=== PATIENT | female | born 1990 | race African-American/Black ===

== ENCOUNTER 2017-11-03 09:57 | Emergency (ER) | payer SELFPAY ==
[~2017-11-03] VITALS: Ht 162.6 cm; Wt 98.6 kg
[~2017-11-03 09:57] MED LIST: AMOXICILLIN 50500 MG PO; CEFTIN500 MG PO; CEPHALEXIN500 M1 PO; COLACE 100100 MG/CAP PO; DOXYCYCLINE 10100 MG PO; FLAGYL500 MG PO; FLINTSTONES1 CTB PO; GENTAMICIN EYE D5 ML OS; IMPLANON68 MG ID; NO HOME MEDICATIONS; NORCO 325 MG-51 TAB PO; PHENERGAN 25 TA25 MG PO; TUSS PO; ZOFRAN 4MG T4 MG/TAB PO; ZOFRAN4 M1 PO
[2017-11-03 10:02] VITALS: BP 131/76; TEMP 98.3
[2017-11-03 12:05] VITALS: PULSE 62
== END 2017-11-03 12:12 | disposition home or self-care (01) ==
LOC: COL.ER 09:57
DX: H61.23 Impacted cerumen, bilateral (principal); F17.210 Nicotine dependence, cigarettes, uncomplicated

== ENCOUNTER 2017-11-22 09:58 | Emergency (ER) | payer MEDICAID ==
[~2017-11-22] VITALS: Ht 165.1 cm; Wt 102.3 kg
[2017-11-22 10:01] VITALS: TEMP 99.2
[2017-11-22 10:24] LABS: COLLECTION METHOD CLEAN CATCH
[2017-11-22 10:31] LABS: MUCOUS Present /lpf; PH 7 (5-8); URINE APPEARANCE Hazy; URINE BACTERIA None Seen /hpf; URINE BILIRUBIN Negative (NEGATIVE); URINE BLOOD Negative (NEGATIVE); URINE COLOR Yellow; URINE GLUCOSE Negative (NEGATIVE); URINE KETONE Negative (NEGATIVE); URINE LEUKOCYTE ESTERASE Negative (NEGATIVE); URINE NITRATE Negative (NEGATIVE); URINE PROTEIN(semi-quant) Negative (NEGATIVE); URINE RBC 0-2 /hpf; URINE UROBILINOGEN Negative (NEGATIVE)
[2017-11-22 12:33] LABS: BASO % 0.3 % (0.0-2.0); EOS % 0.2 % (0-4.0); GRAN # 3.5 (1.4-6.5); GRAN % 60.9 % (42.2-75.2); LYMPH # 1.8 (1.2-3.4); LYMPH % 30.9 % (20.0-51.0); MEAN CELL VOLUME 87 fl (80.0-100.0); MEAN CORPUSCULAR HGB CONC 32 g/dl (33.0-37.0); MEAN PLATELET VOLUME 10.2 fl (7.4-10.4); MONO # 0.4 (0.1-0.6); MONO % 7.2 % (1.7-9.3); PLATELET COUNT 290 K/mm3 (130-400); RED BLOOD COUNT 4.23 M/mm3 (4.10-5.30); REDCELL DISTRIBUTION WIDTH-CV 14.7 % (11.5-14.5)
[2017-11-22 12:39] LABS: HEMATOCRIT 36.6 % (37.0-47.0); HEMOGLOBIN 11.8 g/dl (12.5-16.0); MEAN CORPUSCULAR HEMOGLOBIN 28 pg (27.0-31.0)
[2017-11-22 13:20] LABS: ALBUMIN 4.1 gm/dL (3.5-5.0); BILIRUBIN,TOTAL 0.3 mg/dL (0.0-1.0); CREATININE, serum 0.67 mg/dL (0.52-1.25); TOTAL PROTEIN 7.3 gm/dL (6.4-8.2)
[2017-11-22 13:48] VITALS: BP 119/69; PULSE 82
[2017-11-22] MEDS ORDERED: FLAGYL500 MG PO (14:10)
== END 2017-11-22 14:26 | disposition home or self-care (01) ==
LOC: COL.ER 09:58
PROVIDERS: Emergency Medicine; Nurse Practitioner
DX: O26.891 Other specified pregnancy related conditions, first trimester (principal); O23.591 Infection of other part of genital tract in pregnancy, first trimester; O99.331 Smoking (tobacco) complicating pregnancy, first trimester; R10.31 Right lower quadrant pain; B96.89 Other specified bacterial agents as the cause of diseases classified elsewhere; F17.210 Nicotine dependence, cigarettes, uncomplicated; Z98.890 Other specified postprocedural states; Z3A.01 Less than 8 weeks gestation of pregnancy
CPT/HCPCS: J2270; J2550; J7030

== ENCOUNTER 2018-05-22 22:44 | Outpatient (CLI) | payer MEDICAID ==
[~2018-05-22] VITALS: Ht 165.1 cm; Wt 110.0 kg
[2018-05-22 23:30] VITALS: BP 135/69; PULSE 107; TEMP 98.8
[2018-05-23] VITALS: BP 135/69; PULSE 107; TEMP 98.8
[2018-05-23 01:02] LABS: HEMOGLOBIN 10.5 g/dl (12.5-16.0); MEAN CELL VOLUME 90 fl (80.0-100.0); MEAN CORPUSCULAR HEMOGLOBIN 30 pg (27.0-31.0); MEAN CORPUSCULAR HGB CONC 33 g/dl (33.0-37.0); MEAN PLATELET VOLUME 10.4 fl (7.4-10.4); PLATELET COUNT 250 K/mm3 (130-400); RED BLOOD COUNT 3.54 M/mm3 (4.10-5.30); REDCELL DISTRIBUTION WIDTH-CV 14.8 % (11.5-14.5)
[2018-05-23 01:09] LABS: HEMATOCRIT 31.9 % (37.0-47.0)
[2018-05-23 01:13] LABS: ALBUMIN 3.9 gm/dL (3.5-5.0); BILIRUBIN,TOTAL 0.3 mg/dL (0.0-1.0); CREATININE, serum 0.45 mg/dL (0.52-1.25); POTASSIUM 3.6 mmol/L (3.4-5.0); TOTAL PROTEIN 7.6 gm/dL (6.4-8.2)
[2018-05-23] MEDS ORDERED: ZOFRAN 4MG T4 MG/TAB PO (01:24)
[2018-05-23 02:35] LABS: BAND 12 % (0-10); HYPOCHROMIA 1+; LYMPHOCYTE 13 % (20.0-51.0); NEUTROPHILS 67 % (42.0-75.2); PLATELET ESTIMATE NORMAL (NORMAL)
[2018-05-23 02:36] LABS: ANISOCYTOSIS 1+; POLYCHROMASIA 1+
[2018-05-23 02:37] LABS: TEAR DROP CELLS 1+
== END 2018-05-23 01:55 | disposition home or self-care (01) ==
LOC: LDRO 22:44
PROVIDERS: Obstetrics & Gynecology
DX: O99.89 Other specified diseases and conditions complicating pregnancy, childbirth and the puerperium (principal); R10.9 Unspecified abdominal pain; Z3A.32 32 weeks gestation of pregnancy
CPT/HCPCS: J2405; J2550; J7120

== ENCOUNTER 2018-06-30 11:39 | Outpatient (CLI) | payer MEDICAID ==
[~2018-06-30] VITALS: Ht 165.1 cm; Wt 112.3 kg
[2018-06-30 12:03] VITALS: BP 112/67; PULSE 109; TEMP 98.2
== END 2018-06-30 12:55 | disposition home or self-care (01) ==
LOC: LDRO 11:39
DX: Z34.93 Encounter for supervision of normal pregnancy, unspecified, third trimester (principal); Z3A.37 37 weeks gestation of pregnancy

== ENCOUNTER 2018-07-25 17:53 | Emergency (ER) | payer MEDICAID ==
[~2018-07-25] VITALS: Wt 95.5 kg
[~2018-07-25 17:53] MED LIST changes: +IBU800 M1 PO; +PERCOCET 325 MG1 TA2 PO
[2018-07-25 18:03] VITALS: BP 136/93; TEMP 99
[2018-07-25] MEDS ORDERED: CEPHALEXIN500 M1 PO (18:30)
[2018-07-25 19:06] VITALS: PULSE 86
== END 2018-07-25 19:06 | disposition home or self-care (01) ==
LOC: COL.ER 17:53
DX: O90.0 Disruption of cesarean delivery wound (principal); F17.210 Nicotine dependence, cigarettes, uncomplicated; Z98.51 Tubal ligation status; Z98.890 Other specified postprocedural states

== ENCOUNTER 2019-09-26 12:57 | Emergency (ER) | payer SELFPAY ==
[~2019-09-26] VITALS: Ht 165.1 cm; Wt 113.6 kg
[2019-09-26 13:05] VITALS: TEMP 98.7
[2019-09-26] MEDS ORDERED: DOXYCYCLINE 10100 MG PO (14:29)
[2019-09-26 14:37] VITALS: BP 119/77; PULSE 81
== END 2019-09-26 14:38 | disposition home or self-care (01) ==
LOC: COL.ER 12:57
DX: L02.211 Cutaneous abscess of abdominal wall (principal); F17.210 Nicotine dependence, cigarettes, uncomplicated

== ENCOUNTER 2019-11-02 12:09 | Emergency (ER) | payer SELFPAY ==
[~2019-11-02] VITALS: Ht 165.1 cm; Wt 107.7 kg
[2019-11-02 12:13] VITALS: BP 135/84; TEMP 97.1
[2019-11-02] MEDS ORDERED: TAMIFLU 75MG75 MG PO (14:48)
[2019-11-02] MEDS ORDERED: ZOFRAN ODT4 MG PO (14:48)
[2019-11-02 15:01] VITALS: PULSE 82
== END 2019-11-02 15:25 | disposition home or self-care (01) ==
LOC: COL.ER 12:09
DX: J10.1 Influenza due to other identified influenza virus with other respiratory manifestations (principal); R07.9 Chest pain, unspecified; F17.210 Nicotine dependence, cigarettes, uncomplicated
CPT/HCPCS: C9113; J2405; J7030

== ENCOUNTER 2021-01-23 16:38 | Emergency (ER) | payer MEDICAID ==
[~2021-01-23] VITALS: Ht 162.6 cm; Wt 90.9 kg
[~2021-01-23 16:38] MED LIST changes: +TAMIFLU 75MG75 MG PO; +ZOFRAN ODT4 MG PO
[2021-01-23 17:02] VITALS: BP 114/79; TEMP 99.2
[2021-01-23] MEDS ORDERED: IBU800 M1 PO (17:50)
[2021-01-23] MEDS ORDERED: AMOXICILLIN 8751 TAB PO (17:50)
[2021-01-23 18:20] VITALS: PULSE 84
== END 2021-01-23 18:21 | disposition home or self-care (01) ==
LOC: COL.ER 16:38
DX: K04.7 Periapical abscess without sinus (principal); F17.210 Nicotine dependence, cigarettes, uncomplicated
CPT/HCPCS: J1885

== ENCOUNTER 2023-09-10 09:07 | Emergency (ER) | payer SELFPAY ==
[~2023-09-10] VITALS: Ht 162.6 cm; Wt 109.1 kg
[~2023-09-10 09:07] MED LIST changes: +AMOXICILLIN 8751 TAB PO
[2023-09-10 09:12] VITALS: BP 148/104; TEMP 98.2
[2023-09-10] MEDS ORDERED: AMOXICILLIN 50500 MG PO (10:08)
[2023-09-10] MEDS ORDERED: PERCOCET 325 MG1 TA2 PO (10:08)
[2023-09-10 10:33] VITALS: PULSE 99
== END 2023-09-10 10:30 | disposition home or self-care (01) ==
LOC: COL.ER 09:07
DX: K08.89 Other specified disorders of teeth and supporting structures (principal)
CPT/HCPCS: J0696; J1885